=== PATIENT | male | born 1980 | race African-American/Black ===

== ENCOUNTER 2016-05-11 01:57 | Emergency (ER) | payer OTHER ==
[2016-05-11 04:29] LABS: BASO % 0.5 % (0.0-1.0); EOS # 0.2 K/mm3 (0.0-0.50); EOS % 2.7 % (0.0-3.0); LARGE UNSTAINED CELL # 0.2 K/mm3 (0.0-0.4); LARGE UNSTAINED CELL % 2.7 % (0.0-4.0); LYMPH # 1.9 K/mm3 (1.5-4.5); LYMPH % 26.5 % (24.0-44.0); MEAN CORPUSCULAR HEMOGLOBIN 28.6 pg (27.0-33.0); MEAN CORPUSCULAR HGB CONC 35.7 g/dl (32.0-36.5); MEAN CORPUSCULAR VOLUME 80.3 fl (80.0-96.0); MONO # 0.4 K/mm3 (0.0-0.8); MONO % 5.3 % (0.0-5.0); NEUTROPHILS # 4.1 K/mm3 (1.8-7.7); NEUTROPHILS % 62.3 % (36.0-66.0); PLATELET COUNT, AUTOMATED 215 k/mm3 (150-450); RED CELL DISTRIBUTION WIDTH 13.2 % (11.5-14.5); WHITE BLOOD COUNT 6.5 K/mm3 (4.0-10.0)
[2016-05-11 04:55] LABS: ALBUMIN 3.9 GM/DL (3.2-5.2); ALBUMIN/GLOBULIN RATIO 1.15 (1.00-1.93); ALKALINE PHOSPHATASE 72 U/L (45-117); ALT/SGPT 37 U/L (12-78); AMYLASE 58 U/L (25-115); ANION GAP 10 MEQ/L (8-16); AST/SGOT 19 U/L (15-37); BILIRUBIN,TOTAL 1.2 MG/DL (0.2-1.0); BLOOD UREA NITROGEN 13 MG/DL (7-18); CALCIUM LEVEL 8.9 MG/DL (8.5-10.1); CARBON DIOXIDE LEVEL 28 MEQ/L (21-32); CHLORIDE LEVEL 103 MEQ/L (98-107); CREATININE FOR GFR 1.36 MG/DL (0.70-1.30); GLOMERULAR FILTRATION RATE > 60.0 (>60); GLUCOSE, FASTING 112 MG/DL (70-105); POTASSIUM SERUM 3.6 MEQ/L (3.5-5.1); SODIUM LEVEL 141 MEQ/L (136-145); TOTAL PROTEIN 7.3 GM/DL (6.4-8.2)
[2016-05-11] MEDS ORDERED: MORPHINE 2 MG/ML 1ML SYRINGE As Ordered ONE (05:12)
--- NOTE | 2016-05-11 05:20 | REPUSA ---
CLINICAL HISTORY: RUQ pain. TECHNIQUE: Realtime sonographic images were obtained in multiple projections. COMMENTS: The visualized liver is of uniform echo texture without evidence of mass or defect. There is no intra or extrahepatic biliary ductal dilatation. The common bile duct measures 4.2 mm. The gallbladder co ntains a sludge. Normal gallbladder with thickness measuring 2.6 mm. The gallbladder wall is not thic kened and there is no pericholecystic fluid. The visualized portions of the pancreas are unremarkable. Right kidney measures 10.9x5.9x4.2 cm. IMPRESSION: Gallbladder sludge. Thank you for your kind referral of this patient.
[2016-05-11] MEDS ORDERED: ISOVUE-370 76% 100ML VIAL (Q9967) As Ordered ONE (05:36)
--- NOTE | 2016-05-11 06:00 | REPUSA ---
CLINICAL HISTORY: Abdominal pain. TECHNIQUE: Multiple axial, sagittal and coronal CT images were obtained through the abdomen and pelvi s after administration of intravenous contrast material. COMMENTS: The liver is of uniform attenuation without mass or defect. There is no intra or extrahepatic biliary ductal dilatation. The spleen is normal. The gallbladder is within normal limits. The pancreas is of normal contour and attenuation characteristics. There is no evidence of adrenal mass. Both kidneys demonstrate prompt and equal nephrograms. The kidneys are normal in size, shape and conf iguration. There is no evidence of renal or ureteral mass. No renal or ureteral calculi are identifie d. There is no hydroureter or hydronephrosis. Mild thickening and abnormal enhancement of the appendix. Mild periappendiceal fat stranding. Fluid-filled bowels. No evidence for small or large bowel obstruction. There is no evidence of abdomi nal ascites or lymphadenopathy. There is no evidence of intrinsic or extrinsic bladder mass. There is no pelvic ascites or lymphadeno carmen. Diverticulosis. Mild thickening of the distal sigmoid colon. Images of the lung bases show no evidence of pleural or parenchymal mass. There are no pleural effusi ons. The bony structures are free of lytic or blastic lesions. IMPRESSION: Suspected mild changes of developing acute appendicitis. This needs a surgical consultation. Ileus/enteritis. Mildly thickened distal sigmoid just above the rectosigmoid junction. Under distention versus mild co litis. No perforation or abscess formation. Thank you for your kind referral of this patient.
--- NOTE | 2016-05-11 06:57 | EDDOCDS ---
Physician Documentation [facility] Name: Benja Mariscal Age: 35 yrs Sex: Male : 1980 Arrival Date: 05/11/2016 Time: 01:57 Bed 8 Private MD: Disposition: 05/11 06:41 I have independently interviewed and examined the patient, and I agree with the mm11 investigation, diagnosis and treatment plan as documented by the Resident. Disposition: 05/11/16 06:38 Discharged to Home/Self Care. Impression: Generalized abdominal pain - Possible Early Appendicitis. - Condition is Stable. - Discharge Instructions: Abdominal Pain, Adult, Colic, Abdominal Pain, Adult, [id number], Colic, [id number]-hg-[id number]. - Prescriptions for Zofran 4 mg Oral Tablet - take 1 tablet by ORAL route 4 times per day As needed; 10 tablet. - Medication Reconciliation, Local Pharmacy Hours form. - Follow up: MARGUERITE Thayer; When: 2 - 3 days; Reason: Recheck today's complaints, Continuance of care. - Problem is new. - Symptoms have improved. - Notes: Clinically we do not believe you have appendicitis. Please watch for fevers, chills, worsening abdominal pain, loss of appetite, nausea, vomiting, and worsening of symptoms. Please return to the ED if this occurs. Historical: - Allergies: no known allergies; - Home Meds: 1. none - PMHx: none; - PSHx: none; - Social history: Smoking status: Patient states was never smoker of tobacco. No barriers to communication noted, The patient speaks fluent Faroese, Speaks appropriately for age. - Family history: Not pertinent. - : The pt / caregiver states he / she is not on anticoagulants. Home medication list is obtained from the patient. - Exposure Risk Screening:: None identified. Vital Signs: 02:15 BP 139 / 78; Pulse 99; Resp 18; Temp 99(TE); Pulse Ox 96% on R/A; Weight 95.25 kg / sls1 209.99 lbs (R); Height 5 ft. 6 in. (167.64 cm); Pain 3/10; 05:19 BP 128 / 72; Pulse 82; Resp 18; Temp 99.1; Pulse Ox 97% ; Pain 5/10; ko2 06:43 BP 119 / 71; Pulse 88; Resp 16; Temp 98.7(O); Pulse Ox 99% ; mv5 02:15 Body Mass Index 33.89 (95.25 kg, 167.64 cm) sls1 MDM: 04:04 IV Saline Lock ordered. gk1 04:04 NS 0.9% 1000 ml IV at bolus once ordered. gk1 04:05 CBC with Diff Ordered. EDMS 04:05 Complete Comphrensive Metabolic Ordered. EDMS 04:05 Amylase Ordered. EDMS 04:05 Lipase Ordered. EDMS 04:05 Gallbladder US Ordered. EDMS 04:49 [facility] Payment Agreement was scanned into [employer] and attached to record. gjb 04:49 Financial registration complete. gjb 05:08 morphine 2 mg IVP once ordered. gk1 05:21 CBC with Diff Reviewed. mm11 05:21 Complete Comphrensive Metabolic Reviewed. mm11 05:21 Amylase Reviewed. mm11 05:21 Lipase Reviewed. mm11 05:24 CT ABD & PELVIS: IV Contrast Only Ordered. EDMS 05:42 Gallbladder US Reviewed. gk1 06:09 NOTHING BY MOUTH+DIET ordered. EDMS Administered Medications: 04:24 Drug: NS 0.9% 1000 ml [sodium chloride 0.9 % intravenous solution] Route: IV; Rate: ko2 bolus; Site: left antecubital; 06:52 Follow up: IV Status: Completed infusion mv5 05:17 Drug: morphine 2 mg [morphine 2 mg/mL intravenous cartridge (1 mL)] Route: IVP; Site: ko2 left antecubital; 06:52 Follow up: Response: No Adverse Reaction mv5 Signatures: Dispatcher [employer] EDMS Elroy Alonso DO DO mm11 Jo Ruiz RN RN sls1 Fatou Blanco RN RN ko2 Candy Lucasb Venkatesh Guardado DO DO gk1 Renetta Alford RN mv5 The chart was reviewed and I authenticate all verbal orders and agree with the evaluation and treatment provided.Attachments: 04:49 [facility] Payment Agreement gj MTDD
--- NOTE | 2016-05-11 06:57 | EDDOCDS ---
Nurse's Notes [facility] Name: Benja Mariscal Age: 35 yrs Sex: Male : 1980 Arrival Date: 05/11/2016 Time: 01:57 Bed 8 Private MD: Diagnosis: Generalized abdominal pain-Possible Early Appendicitis Presentation: 05/11 02:13 Presenting complaint: Patient states: vomiting yesterday all day, reports had a bowel sls1 movement with dark blood in stool, also reports abdominal pain, denies fever, reports chills. Adult Sepsis Screening: The patient does not have new or worsening altered mentation. Patient's respiratory rate is less than 22. Systolic blood pressure is greater than 100. Patient has a qSOFA score of 0- Negative Sepsis Screen. Suicide/Homicide risk assessment- the patient denies having any suicidal and/or homicidal ideations and does not present with any other emotional, behavioral or mental health complaints. 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 Transition of care: patient was not received from another setting of care. 02:13 Acuity: BENNY Level 3 sls1 02:13 Method Of Arrival: Walkin/Carried/Asstd sls1 Triage Assessment: 02:15 General: Appears in no apparent distress, Behavior is appropriate for age, cooperative. sls1 Pain: Location: abdomen Pain currently is 3 out of 10 on a pain scale. Pt Declines HIV testing. Neurological: No deficits noted. Respiratory: No deficits noted. GI: Reports bloody stools cramping, nausea. Historical: - Allergies: no known allergies; - Home Meds: 1. none - PMHx: none; - PSHx: none; - Social history: Smoking status: Patient states was never smoker of tobacco. No barriers to communication noted, The patient speaks fluent [place] Citizen, Speaks appropriately for age. - Family history: Not pertinent. - : The pt / caregiver states he / she is not on anticoagulants. Home medication list is obtained from the patient. - Exposure Risk Screening:: None identified. Screenin:24 Screening information is obtained from the patient. Fall risk: No risks identified. ko2 Assistance ADL's: requires no assistance with activities of daily living. Abuse/DV Screen: The patient / caregiver reports he/she is: not in a situation that causes fear, pain or injury. Nutritional screening: No deficits noted. Advance Directives: Currently, there is no health care proxy. There is no active DNR order. There is no living will. There is no Power of Peripheral Equipment Operator. home support is adequate. Assessment: 02:59 General: Appears in no apparent distress, comfortable, Behavior is appropriate for age, ko2 cooperative. Pain: Location: abdomen. Neurological: Level of Consciousness is awake, alert. Respiratory: Airway is patent Respiratory effort is even, unlabored. Derm: Skin is normal. 04:00 General: Appears in no apparent distress, comfortable, Behavior is appropriate for age, ko2 cooperative. Pain: Location: abdomen Pain currently is 4 out of 10 on a pain scale. Neurological: Level of Consciousness is awake, alert. Respiratory: Airway is patent Respiratory effort is even, unlabored. Derm: Skin is normal. 05:18 General: Appears in no apparent distress, comfortable, pt was sleeping on stretcher and ko2 was woken up for medication. Pain: Location: abdomen Pain currently is 5 out of 10 on a pain scale. Neurological: Level of Consciousness is awake, alert. Respiratory: Airway is patent Respiratory effort is even, unlabored. Derm: Skin is normal. 06:14 General: Appears in no apparent distress, comfortable, Behavior is appropriate for age, ko2 cooperative. Pain: Location: abdomen Pain currently is 1 out of 10 on a pain scale. Neurological: Level of Consciousness is awake, alert. Respiratory: Airway is patent Respiratory effort is even, unlabored. Derm: Skin is normal. 06:53 General: Appears in no apparent distress, comfortable, Behavior is appropriate for age, ko2 cooperative. Neurological: Level of Consciousness is awake, alert. Respiratory: Airway is patent Respiratory effort is even, unlabored. Derm: Skin is normal. Vital Signs: 02:15 BP 139 / 78; Pulse 99; Resp 18; Temp 99(TE); Pulse Ox 96% on R/A; Weight 95.25 kg (R); sls1 Height 5 ft. 6 in. (167.64 cm); Pain 3/10; 05:19 BP 128 / 72; Pulse 82; Resp 18; Temp 99.1; Pulse Ox 97% ; Pain 5/10; ko2 06:43 BP 119 / 71; Pulse 88; Resp 16; Temp 98.7(O); Pulse Ox 99% ; mv5 02:15 Body Mass Index 33.89 (95.25 kg, 167.64 cm) [facility] Vitals: 02:15 Log In Time: May 11, 2016 at 02:00. [facility] ED Course: 01:59 Patient visited by Bigg Roberto. jp5 01:59 Patient moved to Waiting jp5 02:14 Triage Initiated sls1 02:55 Fatou Blanco RN is Primary Nurse. mar 02:55 Patient moved to 8 mar 02:59 Patient visited by Fatou Blanco RN. ko2 03:00 Patient visited by Fatou Blanco RN. ko2 03:31 Venkatesh Guardado DO is PHCP. gk1 03:31 Elroy Alonso DO is Attending Physician. gk1 03:59 Patient visited by Fatou Balnco RN. ko2 04:24 Lipase Sent. ko2 04:24 Amylase Sent. ko2 04:24 Complete Comphrensive Metabolic Sent. ko2 04:25 The patient / caregiver is instructed regarding the plan of care and ED course. ko2 04:25 Inserted saline lock: 20 gauge in left antecubital area and blood collected. ko2 04:35 Patient visited by Elroy Alonso DO. mm11 04:49 [facility] Payment Agreement was scanned into [employer] and attached to record. gjb 05:10 Patient visited by Venkatesh Guardado DO. gk1 05:30 Gallbladder US Returned. EDMS 06:01 CT ABD & PELVIS: IV Contrast Only Returned. EDMS 06:09 Patient visited by Fatou Blanco RN. ko2 06:37 Flaca [facility] is Referral Physician. gk1 06:51 Discontinued intact, bleeding controlled, pressure dressing applied, No mv5 redness/swelling at site. 06:54 No procedures done that require assistance. ko2 Administered Medications: 04:24 Drug: NS 0.9% 1000 ml [sodium chloride 0.9 % intravenous solution] Route: IV; Rate: ko2 bolus; Site: left antecubital; 06:52 Follow up: IV Status: Completed infusion mv5 05:17 Drug: morphine 2 mg [morphine 2 mg/mL intravenous cartridge (1 mL)] Route: IVP; Site: ko2 left antecubital; 06:52 Follow up: Response: No Adverse Reaction mv5 Order Results: Lab Order: CBC with Diff; SPEC'M 05/11/16 04:18 Test: WHITE BLOOD COUNT; Value: 6.5; Range: 4.0-10.0; Units: K/mm3; Status: F Test: RED BLOOD COUNT; Value: 5.37; Range: 4.30-6.10; Units: M/mm3; Status: F Test: HEMOGLOBIN; Value: 15.4; Range: 14.0-18.0; Units: g/dl; Status: F Test: HEMATOCRIT; Value: 43.1; Range: 42.0-52.0; Units: %; Status: F Test: MEAN CORPUSCULAR VOLUME; Value: 80.3; Range: 80.0-96.0; Units: fl; Status: F Test: MEAN CORPUSCULAR HEMOGLOBIN; Value: 28.6; Range: 27.0-33.0; Units: pg; Status: F Test: MEAN CORPUSCULAR HGB CONC; Value: 35.7; Range: 32.0-36.5; Units: g/dl; Status: F Test: RED CELL DISTRIBUTION WIDTH; Value: 13.2; Range: 11.5-14.5; Units: %; Status: F Test: PLATELET COUNT, AUTOMATED; Value: 215; Range: 150-450; Units: k/mm3; Status: F Test: NEUTROPHILS %; Value: 62.3; Range: 36.0-66.0; Units: %; Status: F Test: LYMPH %; Value: 26.5; Range: 24.0-44.0; Units: %; Status: F Test: MONO %; Value: 5.3; Range: 0.0-5.0; Abnormal: Above high normal; Units: %; Status: F Test: EOS %; Value: 2.7; Range: 0.0-3.0; Units: %; Status: F Test: BASO %; Value: 0.5; Range: 0.0-1.0; Units: %; Status: F Test: LARGE UNSTAINED CELL %; Value: 2.7; Range: 0.0-4.0; Units: %; Status: F Test: NEUTROPHILS #; Value: 4.1; Range: 1.8-7.7; Units: K/mm3; Status: F Test: LYMPH #; Value: 1.9; Range: 1.5-4.5; Units: K/mm3; Status: F Test: MONO #; Value: 0.4; Range: 0.0-0.8; Units: K/mm3; Status: F Test: EOS #; Value: 0.2; Range: 0.0-0.50; Units: K/mm3; Status: F Test: BASO #; Value: 0.0; Range: 0.0-0.2; Units: K/mm3; Status: F Test: LARGE UNSTAINED CELL #; Value: 0.2; Range: 0.0-0.4; Units: K/mm3; Status: F Lab Order: Complete Comphrensive Metabolic; SPECM 05/11/16 04:18 Test: GLUCOSE, FASTING; Value: 112; Range: 70-105; Abnormal: Above high normal; Units: MG/DL; Status: F Test: BLOOD UREA NITROGEN; Value: 13; Range: 7-18; Units: MG/DL; Status: F Test: CREATININE FOR GFR; Value: 1.36; Range: 0.70-1.30; Abnormal: Above high normal; Units: MG/DL; Status: F Test: GLOMERULAR FILTRATION RATE; Value: > 60.0; Range: >60; Status: F Test: SODIUM LEVEL; Value: 141; Range: 136-145; Units: MEQ/L; Status: F Test: POTASSIUM SERUM; Value: 3.6; Range: 3.5-5.1; Units: MEQ/L; Status: F Test: CHLORIDE LEVEL; Value: 103; Range: 98-107; Units: MEQ/L; Status: F Test: CARBON DIOXIDE LEVEL; Value: 28; Range: 21-32; Units: MEQ/L; Status: F Test: ANION GAP; Value: 10; Range: 8-16; Units: MEQ/L; Status: F Test: CALCIUM LEVEL; Value: 8.9; Range: 8.5-10.1; Units: MG/DL; Status: F Test: AST/SGOT; Value: 19; Range: 15-37; Units: U/L; Status: F Test: ALT/SGPT; Value: 37; Range: 12-78; Units: U/L; Status: F Test: ALKALINE PHOSPHATASE; Value: 72; Range: 45-117; Units: U/L; Status: F Test: BILIRUBIN,TOTAL; Value: 1.2; Range: 0.2-1.0; Abnormal: Above high normal; Units: MG/DL; Status: F Test: TOTAL PROTEIN; Value: 7.3; Range: 6.4-8.2; Units: GM/DL; Status: F Test: ALBUMIN; Value: 3.9; Range: 3.2-5.2; Units: GM/DL; Status: F Test: ALBUMIN/GLOBULIN RATIO; Value: 1.15; Range: 1.00-1.93; Status: F Test Note: ; Units are mL/min/1.73 m2 Chronic Kidney Disease Staging per NKF: Stage I & II GFR >=60 Normal to Mildly Decreased Stage III GFR 30-59 Moderately Decreased Stage IV GFR 15-29 Severely Decreased Stage V GFR <15 Very Little GFR Left ESRD GFR <15 on ASSURANCE SENIOR Lab Order: Amylase; SPEC'M 05/11/16 04:18 Test: AMYLASE; Value: 58; Range: 25-115; Units: U/L; Status: F Lab Order: Lipase; SPEC'M 05/11/16 04:18 Test: LIPASE; Value: 137; Range: 73-393; Units: U/L; Status: F Radiology Order: Gallbladder US Test: Gallbladder US REASON FOR EXAMINATION: Biliary Colic; ; CLINICAL HISTORY: RUQ pain.; TECHNIQUE: Realtime sonographic images were obtained in multiple projections.; COMMENTS:; The visualized liver is of uniform echo texture without evidence of mass or defect. There is no intra; or extrahepatic biliary ductal dilatation. The common bile duct measures 4.2 mm. The gallbladder co; ntains a sludge. Normal gallbladder with thickness measuring 2.6 mm. The gallbladder wall is not thic; kened and there is no pericholecystic fluid.; The visualized portions of the pancreas are unremarkable.; Right kidney measures 10.9x5.9x4.2 cm.; IMPRESSION:; Gallbladder sludge.; Thank you for your kind referral of this patient.; ; Radiology Order: CT ABD & PELVIS: IV Contrast Only Test: CT ABD & PELVIS: IV Contrast Only REASON FOR EXAMINATION: Diverticulitis; ; CLINICAL HISTORY: Abdominal pain.; TECHNIQUE: Multiple axial, sagittal and coronal CT images were obtained through the abdomen and pelvi; s after administration of intravenous contrast material.; COMMENTS:; The liver is of uniform attenuation without mass or defect. There is no intra or extrahepatic biliary; ductal dilatation. The spleen is normal. The gallbladder is within normal limits. The pancreas is of; normal contour and attenuation characteristics. There is no evidence of adrenal mass.; Both kidneys demonstrate prompt and equal nephrograms. The kidneys are normal in size, shape and conf; iguration. There is no evidence of renal or ureteral mass. No renal or ureteral calculi are identifie; d. There is no hydroureter or hydronephrosis.; Mild thickening and abnormal enhancement of the appendix. Mild periappendiceal fat stranding.; Fluid-filled bowels. No evidence for small or large bowel obstruction. There is no evidence of abdomi; nal ascites or lymphadenopathy.; There is no evidence of intrinsic or extrinsic bladder mass. There is no pelvic ascites or lymphadeno; carmen. Diverticulosis. Mild thickening of the distal sigmoid colon.; Images of the lung bases show no evidence of pleural or parenchymal mass. There are no pleural effusi; ons.; The bony structures are free of lytic or blastic lesions.; IMPRESSION:; Suspected mild changes of developing acute appendicitis. This needs a surgical consultation.; Ileus/enteritis.; Mildly thickened distal sigmoid just above the rectosigmoid junction. Under distention versus mild co; litis.; No perforation or abscess formation.; Thank you for your kind referral of this patient.; ; Outcome: 06:38 Discharge ordered by Provider. gk1 06:54 Discharge Assessment: Patient awake, alert and oriented x 3. No cognitive and/or ko2 functional deficits noted. Patient verbalized understanding of disposition instructions. patient administered narcotics - no. The following High Risk Discharge criteria are identified: None. Discharged to home ambulatory. Condition: stable. Discharge instructions given to patient, Instructed on discharge instructions, follow up and referral plans. medication usage, Demonstrated understanding of instructions, medications, Pt was receptive of discharge instructions/ teaching. CT Study completed. Property sent home with patient. 06:55 Patient left the ED. ko2 Signatures: Dispatcher [employer] Cara Lagos, RN RN Elroy Ken, DO DO mm11 Jo Ruiz, RN RN sls1 Fatou BlancoRN RN blanca2 Bigg Roberto jp5 Candy Lucas Gurpreet, DO DO gk1 Renetta Alford,RN RN mv5 MTDD
--- NOTE | 2016-05-13 07:55 | EDDOCDS ---
Physician Documentation [facility] Name: Benja Mariscal Age: 35 yrs Sex: Male : 1980 Arrival Date: 05/11/2016 Time: 01:57 Bed 8 Private MD: Disposition: 05/11 06:41 I have independently interviewed and examined the patient, and I agree with the mm11 investigation, diagnosis and treatment plan as documented by the Resident. Disposition: 05/11/16 06:38 Discharged to Home/Self Care. Impression: Generalized abdominal pain - Possible Early Appendicitis. - Condition is Stable. - Discharge Instructions: Abdominal Pain, Adult, Colic, Abdominal Pain, Adult, Jysu-[id number], Colic, [id number]. - Prescriptions for Zofran 4 mg Oral Tablet - take 1 tablet by ORAL route 4 times per day As needed; 10 tablet. - Medication Reconciliation, Local Pharmacy Hours form. - Follow up: MARGUERITE Thayer; When: 2 - 3 days; Reason: Recheck today's complaints, Continuance of care. - Problem is new. - Symptoms have improved. - Notes: Clinically we do not believe you have appendicitis. Please watch for fevers, chills, worsening abdominal pain, loss of appetite, nausea, vomiting, and worsening of symptoms. Please return to the ED if this occurs. Historical: - Allergies: no known allergies; - Home Meds: 1. none - PMHx: none; - PSHx: none; - Social history: Smoking status: Patient states was never smoker of tobacco. No barriers to communication noted, The patient speaks fluent [place]odian, Speaks appropriately for age. - Family history: Not pertinent. - : The pt / caregiver states he / she is not on anticoagulants. Home medication list is obtained from the patient. - Exposure Risk Screening:: None identified. Vital Signs: 02:15 BP 139 / 78; Pulse 99; Resp 18; Temp 99(TE); Pulse Ox 96% on R/A; Weight 95.25 kg / sls1 209.99 lbs (R); Height 5 ft. 6 in. (167.64 cm); Pain 3/10; 05:19 BP 128 / 72; Pulse 82; Resp 18; Temp 99.1; Pulse Ox 97% ; Pain 5/10; ko2 06:43 BP 119 / 71; Pulse 88; Resp 16; Temp 98.7(O); Pulse Ox 99% ; mv5 02:15 Body Mass Index 33.89 (95.25 kg, 167.64 cm) sls1 MDM: 04:04 IV Saline Lock ordered. gk1 04:04 NS 0.9% 1000 ml IV at bolus once ordered. gk1 04:05 CBC with Diff Ordered. EDMS 04:05 Complete Comphrensive Metabolic Ordered. EDMS 04:05 Amylase Ordered. EDMS 04:05 Lipase Ordered. EDMS 04:05 Gallbladder US Ordered. EDMS 04:49 [facility] Payment Agreement was scanned into [employer] and attached to record. gjb 04:49 Financial registration complete. gjb 05:08 morphine 2 mg IVP once ordered. gk1 05:21 CBC with Diff Reviewed. mm11 05:21 Complete Comphrensive Metabolic Reviewed. mm11 05:21 Amylase Reviewed. mm11 05:21 Lipase Reviewed. mm11 05:24 CT ABD & PELVIS: IV Contrast Only Ordered. EDMS 05:42 Gallbladder US Reviewed. gk1 06:09 NOTHING BY MOUTH+DIET ordered. EDMS 11:33 Radiology Report was scanned into [employer] and attached to record. gb 15:33 T-Sheet-- Draft Copy was scanned into [employer] and attached to record. gb Administered Medications: 04:24 Drug: NS 0.9% 1000 ml [sodium chloride 0.9 % intravenous solution] Route: IV; Rate: ko2 bolus; Site: left antecubital; 06:52 Follow up: IV Status: Completed infusion mv5 05:17 Drug: morphine 2 mg [morphine 2 mg/mL intravenous cartridge (1 mL)] Route: IVP; Site: ko2 left antecubital; 06:52 Follow up: Response: No Adverse Reaction mv5 Signatures: Dispatcher [employer] EDMS Herminia Moy, Reg Reg gb Elroy Alonso, DO mm11 Jo Ruiz RN RN sls1 Fatou Blanco RN RN ko2 Candy Luacs gjb Venkatesh Guardado, DO DO gk1 Renetta Alford RN mv5 The chart was reviewed and I authenticate all verbal orders and agree with the evaluation and treatment provided.Attachments: 04:49 [facility] Payment Agreement b 15:33 T-Sheet-- Draft Copy gb Chart Complete MTDD
--- NOTE | 2016-05-13 07:55 | EDDOCDS ---
Physician Documentation [facility] Name: Benja Mariscal Age: 35 yrs Sex: Male : 1980 Arrival Date: 05/11/2016 Time: 01:57 Bed 8 Private MD: Disposition: 05/11 06:41 I have independently interviewed and examined the patient, and I agree with the mm11 investigation, diagnosis and treatment plan as documented by the Resident. Disposition: 05/11/16 06:38 Discharged to Home/Self Care. Impression: Generalized abdominal pain - Possible Early Appendicitis. - Condition is Stable. - Discharge Instructions: Abdominal Pain, Adult, Colic, Abdominal Pain, Adult, [id number], Colic, [id number]. - Prescriptions for Zofran 4 mg Oral Tablet - take 1 tablet by ORAL route 4 times per day As needed; 10 tablet. - Medication Reconciliation, Local Pharmacy Hours form. - Follow up: MARGUERITE Thayer; When: 2 - 3 days; Reason: Recheck today's complaints, Continuance of care. - Problem is new. - Symptoms have improved. - Notes: Clinically we do not believe you have appendicitis. Please watch for fevers, chills, worsening abdominal pain, loss of appetite, nausea, vomiting, and worsening of symptoms. Please return to the ED if this occurs. Historical: - Allergies: no known allergies; - Home Meds: 1. none - PMHx: none; - PSHx: none; - Social history: Smoking status: Patient states was never smoker of tobacco. No barriers to communication noted, The patient speaks fluent [place], Speaks appropriately for age. - Family history: Not pertinent. - : The pt / caregiver states he / she is not on anticoagulants. Home medication list is obtained from the patient. - Exposure Risk Screening:: None identified. Vital Signs: 02:15 BP 139 / 78; Pulse 99; Resp 18; Temp 99(TE); Pulse Ox 96% on R/A; Weight 95.25 kg / sls1 209.99 lbs (R); Height 5 ft. 6 in. (167.64 cm); Pain 3/10; 05:19 BP 128 / 72; Pulse 82; Resp 18; Temp 99.1; Pulse Ox 97% ; Pain 5/10; ko2 06:43 BP 119 / 71; Pulse 88; Resp 16; Temp 98.7(O); Pulse Ox 99% ; mv5 02:15 Body Mass Index 33.89 (95.25 kg, 167.64 cm) sls1 MDM: 04:04 IV Saline Lock ordered. gk1 04:04 NS 0.9% 1000 ml IV at bolus once ordered. gk1 04:05 CBC with Diff Ordered. EDMS 04:05 Complete Comphrensive Metabolic Ordered. EDMS 04:05 Amylase Ordered. EDMS 04:05 Lipase Ordered. EDMS 04:05 Gallbladder US Ordered. EDMS 04:49 [facility] [place] Agreement was scanned into [employer] and attached to record. gjb 04:49 Financial registration complete. gjb 05:08 morphine 2 mg IVP once ordered. gk1 05:21 CBC with Diff Reviewed. mm11 05:21 Complete Comphrensive Metabolic Reviewed. mm11 05:21 Amylase Reviewed. mm11 05:21 Lipase Reviewed. mm11 05:24 CT ABD & PELVIS: IV Contrast Only Ordered. EDMS 05:42 Gallbladder US Reviewed. gk1 06:09 NOTHING BY MOUTH+DIET ordered. EDMS 11:33 Radiology Report was scanned into [employer] and attached to record. gb 15:33 T-Sheet-- Draft Copy was scanned into [employer] and attached to record. gb Administered Medications: 04:24 Drug: NS 0.9% 1000 ml [sodium chloride 0.9 % intravenous solution] Route: IV; Rate: ko2 bolus; Site: left antecubital; 06:52 Follow up: IV Status: Completed infusion mv5 05:17 Drug: morphine 2 mg [morphine 2 mg/mL intravenous cartridge (1 mL)] Route: IVP; Site: ko2 left antecubital; 06:52 Follow up: Response: No Adverse Reaction mv5 Signatures: Dispatcher [employer] EDMS Herminia Moy, Reg Reg gb Elroy Alonso, DO mm11 Jo Ruiz RN RN sls1 Fatou Blanco RN RN ko2 Candy Lucas gjb Venkatesh Guardado, DO DO gk1 Renetta Alford RN mv5 The chart was reviewed and I authenticate all verbal orders and agree with the evaluation and treatment provided.Attachments: 04:49 [facility] Payment Agreement b 15:33 T-Sheet-- Draft Copy gb Chart Complete MTDD
--- NOTE | 2016-05-13 07:56 | EDDOCDS ---
Nurse's Notes [facility] Name: Benja Mariscal Age: 35 yrs Sex: Male : 1980 Arrival Date: 05/11/2016 Time: 01:57 Bed 8 Private MD: Diagnosis: Generalized abdominal pain-Possible Early Appendicitis Presentation: 05/11 02:13 Presenting complaint: Patient states: vomiting yesterday all day, reports had a bowel sls1 movement with dark blood in stool, also reports abdominal pain, denies fever, reports chills. Adult Sepsis Screening: The patient does not have new or worsening altered mentation. Patient's respiratory rate is less than 22. Systolic blood pressure is greater than 100. Patient has a qSOFA score of 0- Negative Sepsis Screen. Suicide/Homicide risk assessment- the patient denies having any suicidal and/or homicidal ideations and does not present with any other emotional, behavioral or mental health complaints. 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 Transition of care: patient was not received from another setting of care. 02:13 Acuity: BENNY Level 3 sls1 02:13 Method Of Arrival: Walkin/Carried/Asstd sls1 Triage Assessment: 02:15 General: Appears in no apparent distress, Behavior is appropriate for age, cooperative. sls1 Pain: Location: abdomen Pain currently is 3 out of 10 on a pain scale. Pt Declines HIV testing. Neurological: No deficits noted. Respiratory: No deficits noted. GI: Reports bloody stools cramping, nausea. Historical: - Allergies: no known allergies; - Home Meds: 1. none - PMHx: none; - PSHx: none; - Social history: Smoking status: Patient states was never smoker of tobacco. No barriers to communication noted, The patient speaks fluent Bolivian, Speaks appropriately for age. - Family history: Not pertinent. - : The pt / caregiver states he / she is not on anticoagulants. Home medication list is obtained from the patient. - Exposure Risk Screening:: None identified. Screenin:24 Screening information is obtained from the patient. Fall risk: No risks identified. ko2 Assistance ADL's: requires no assistance with activities of daily living. Abuse/DV Screen: The patient / caregiver reports he/she is: not in a situation that causes fear, pain or injury. Nutritional screening: No deficits noted. Advance Directives: Currently, there is no health care proxy. There is no active DNR order. There is no living will. There is no Power of Director Financial Planning. home support is adequate. Assessment: 02:59 General: Appears in no apparent distress, comfortable, Behavior is appropriate for age, ko2 cooperative. Pain: Location: abdomen. Neurological: Level of Consciousness is awake, alert. Respiratory: Airway is patent Respiratory effort is even, unlabored. Derm: Skin is normal. 04:00 General: Appears in no apparent distress, comfortable, Behavior is appropriate for age, ko2 cooperative. Pain: Location: abdomen Pain currently is 4 out of 10 on a pain scale. Neurological: Level of Consciousness is awake, alert. Respiratory: Airway is patent Respiratory effort is even, unlabored. Derm: Skin is normal. 05:18 General: Appears in no apparent distress, comfortable, pt was sleeping on stretcher and ko2 was woken up for medication. Pain: Location: abdomen Pain currently is 5 out of 10 on a pain scale. Neurological: Level of Consciousness is awake, alert. Respiratory: Airway is patent Respiratory effort is even, unlabored. Derm: Skin is normal. 06:14 General: Appears in no apparent distress, comfortable, Behavior is appropriate for age, ko2 cooperative. Pain: Location: abdomen Pain currently is 1 out of 10 on a pain scale. Neurological: Level of Consciousness is awake, alert. Respiratory: Airway is patent Respiratory effort is even, unlabored. Derm: Skin is normal. 06:53 General: Appears in no apparent distress, comfortable, Behavior is appropriate for age, ko2 cooperative. Neurological: Level of Consciousness is awake, alert. Respiratory: Airway is patent Respiratory effort is even, unlabored. Derm: Skin is normal. Vital Signs: 02:15 BP 139 / 78; Pulse 99; Resp 18; Temp 99(TE); Pulse Ox 96% on R/A; Weight 95.25 kg (R); sls1 Height 5 ft. 6 in. (167.64 cm); Pain 3/10; 05:19 BP 128 / 72; Pulse 82; Resp 18; Temp 99.1; Pulse Ox 97% ; Pain 5/10; ko2 06:43 BP 119 / 71; Pulse 88; Resp 16; Temp 98.7(O); Pulse Ox 99% ; mv5 02:15 Body Mass Index 33.89 (95.25 kg, 167.64 cm) [facility] Vitals: 02:15 Log In Time: May 11, 2016 at 02:00. [email or web address] ED Course: 01:59 Patient visited by Bigg Roberto. jp5 01:59 Patient moved to Waiting jp5 02:14 Triage Initiated sls1 02:55 Fatou Blanco RN is Primary Nurse. mar 02:55 Patient moved to 8 mar 02:59 Patient visited by Fatou Blanco RN. ko2 03:00 Patient visited by Fatou Blanco RN. ko2 03:31 Venkatesh Guardado DO is PHCP. gk1 03:31 Elroy Alonso DO is Attending Physician. gk1 03:59 Patient visited by Fatou Blanco RN. ko2 04:24 Lipase Sent. ko2 04:24 Amylase Sent. ko2 04:24 Complete Comphrensive Metabolic Sent. ko2 04:25 The patient / caregiver is instructed regarding the plan of care and ED course. ko2 04:25 Inserted saline lock: 20 gauge in left antecubital area and blood collected. ko2 04:35 Patient visited by Elroy Alonso DO. mm11 04:49 [facility] Payment Agreement was scanned into [employer] and attached to record. gjb 05:10 Patient visited by Venkatesh Guardado DO. gk1 05:30 Gallbladder US Returned. EDMS 06:01 CT ABD & PELVIS: IV Contrast Only Returned. EDMS 06:09 Patient visited by Fatou Blanco RN. ko2 06:37 [facility] [place]erral Physician. gk1 06:51 Discontinued intact, bleeding controlled, pressure dressing applied, No mv5 redness/swelling at site. 06:54 No procedures done that require assistance. ko2 11:33 Radiology Report was scanned into [employer] and attached to record. gb 15:33 T-Sheet-- Draft Copy was scanned into [employer] and attached to record. gb Administered Medications: 04:24 Drug: NS 0.9% 1000 ml [sodium chloride 0.9 % intravenous solution] Route: IV; Rate: ko2 bolus; Site: left antecubital; 06:52 Follow up: IV Status: Completed infusion mv5 05:17 Drug: morphine 2 mg [morphine 2 mg/mL intravenous cartridge (1 mL)] Route: IVP; Site: ko2 left antecubital; 06:52 Follow up: Response: No Adverse Reaction mv5 Order Results: Lab Order: CBC with Diff; SPEC'M 05/11/16 04:18 Test: WHITE BLOOD COUNT; Value: 6.5; Range: 4.0-10.0; Units: K/mm3; Status: F Test: RED BLOOD COUNT; Value: 5.37; Range: 4.30-6.10; Units: M/mm3; Status: F Test: HEMOGLOBIN; Value: 15.4; Range: 14.0-18.0; Units: g/dl; Status: F Test: HEMATOCRIT; Value: 43.1; Range: 42.0-52.0; Units: %; Status: F Test: MEAN CORPUSCULAR VOLUME; Value: 80.3; Range: 80.0-96.0; Units: fl; Status: F Test: MEAN CORPUSCULAR HEMOGLOBIN; Value: 28.6; Range: 27.0-33.0; Units: pg; Status: F Test: MEAN CORPUSCULAR HGB CONC; Value: 35.7; Range: 32.0-36.5; Units: g/dl; Status: F Test: RED CELL DISTRIBUTION WIDTH; Value: 13.2; Range: 11.5-14.5; Units: %; Status: F Test: PLATELET COUNT, AUTOMATED; Value: 215; Range: 150-450; Units: k/mm3; Status: F Test: NEUTROPHILS %; Value: 62.3; Range: 36.0-66.0; Units: %; Status: F Test: LYMPH %; Value: 26.5; Range: 24.0-44.0; Units: %; Status: F Test: MONO %; Value: 5.3; Range: 0.0-5.0; Abnormal: Above high normal; Units: %; Status: F Test: EOS %; Value: 2.7; Range: 0.0-3.0; Units: %; Status: F Test: BASO %; Value: 0.5; Range: 0.0-1.0; Units: %; Status: F Test: LARGE UNSTAINED CELL %; Value: 2.7; Range: 0.0-4.0; Units: %; Status: F Test: NEUTROPHILS #; Value: 4.1; Range: 1.8-7.7; Units: K/mm3; Status: F Test: LYMPH #; Value: 1.9; Range: 1.5-4.5; Units: K/mm3; Status: F Test: MONO #; Value: 0.4; Range: 0.0-0.8; Units: K/mm3; Status: F Test: EOS #; Value: 0.2; Range: 0.0-0.50; Units: K/mm3; Status: F Test: BASO #; Value: 0.0; Range: 0.0-0.2; Units: K/mm3; Status: F Test: LARGE UNSTAINED CELL #; Value: 0.2; Range: 0.0-0.4; Units: K/mm3; Status: F Lab Order: Complete Comphrensive Metabolic; SPEC'M 05/11/16 04:18 Test: GLUCOSE, FASTING; Value: 112; Range: 70-105; Abnormal: Above high normal; Units: MG/DL; Status: F Test: BLOOD UREA NITROGEN; Value: 13; Range: 7-18; Units: MG/DL; Status: F Test: CREATININE FOR GFR; Value: 1.36; Range: 0.70-1.30; Abnormal: Above high normal; Units: MG/DL; Status: F Test: GLOMERULAR FILTRATION RATE; Value: > 60.0; Range: >60; Status: F Test: SODIUM LEVEL; Value: 141; Range: 136-145; Units: MEQ/L; Status: F Test: POTASSIUM SERUM; Value: 3.6; Range: 3.5-5.1; Units: MEQ/L; Status: F Test: CHLORIDE LEVEL; Value: 103; Range: 98-107; Units: MEQ/L; Status: F Test: CARBON DIOXIDE LEVEL; Value: 28; Range: 21-32; Units: MEQ/L; Status: F Test: ANION GAP; Value: 10; Range: 8-16; Units: MEQ/L; Status: F Test: CALCIUM LEVEL; Value: 8.9; Range: 8.5-10.1; Units: MG/DL; Status: F Test: AST/SGOT; Value: 19; Range: 15-37; Units: U/L; Status: F Test: ALT/SGPT; Value: 37; Range: 12-78; Units: U/L; Status: F Test: ALKALINE PHOSPHATASE; Value: 72; Range: 45-117; Units: U/L; Status: F Test: BILIRUBIN,TOTAL; Value: 1.2; Range: 0.2-1.0; Abnormal: Above high normal; Units: MG/DL; Status: F Test: TOTAL PROTEIN; Value: 7.3; Range: 6.4-8.2; Units: GM/DL; Status: F Test: ALBUMIN; Value: 3.9; Range: 3.2-5.2; Units: GM/DL; Status: F Test: ALBUMIN/GLOBULIN RATIO; Value: 1.15; Range: 1.00-1.93; Status: F Test Note: ; Units are mL/min/1.73 m2 Chronic Kidney Disease Staging per NKF: Stage I & II GFR >=60 Normal to Mildly Decreased Stage III GFR 30-59 Moderately Decreased Stage IV GFR 15-29 Severely Decreased Stage V GFR <15 Very Little GFR Left ESRD GFR <15 on PEDIATRIC PATHOLOGIST Lab Order: Amylase; SPEC'M 05/11/16 04:18 Test: AMYLASE; Value: 58; Range: 25-115; Units: U/L; Status: F Lab Order: Lipase; SPEC'M 05/11/16 04:18 Test: LIPASE; Value: 137; Range: 73-393; Units: U/L; Status: F Radiology Order: Gallbladder US Test: Gallbladder US REASON FOR EXAMINATION: Biliary Colic; ; CLINICAL HISTORY: RUQ pain.; TECHNIQUE: Realtime sonographic images were obtained in multiple projections.; COMMENTS:; The visualized liver is of uniform echo texture without evidence of mass or defect. There is no intra; or extrahepatic biliary ductal dilatation. The common bile duct measures 4.2 mm. The gallbladder co; ntains a sludge. Normal gallbladder with thickness measuring 2.6 mm. The gallbladder wall is not thic; kened and there is no pericholecystic fluid.; The visualized portions of the pancreas are unremarkable.; Right kidney measures 10.9x5.9x4.2 cm.; IMPRESSION:; Gallbladder sludge.; Thank you for your kind referral of this patient.; ; Radiology Order: CT ABD & PELVIS: IV Contrast Only Test: CT ABD & PELVIS: IV Contrast Only REASON FOR EXAMINATION: Diverticulitis; ; CLINICAL HISTORY: Abdominal pain.; TECHNIQUE: Multiple axial, sagittal and coronal CT images were obtained through the abdomen and pelvi; s after administration of intravenous contrast material.; COMMENTS:; The liver is of uniform attenuation without mass or defect. There is no intra or extrahepatic biliary; ductal dilatation. The spleen is normal. The gallbladder is within normal limits. The pancreas is of; normal contour and attenuation characteristics. There is no evidence of adrenal mass.; Both kidneys demonstrate prompt and equal nephrograms. The kidneys are normal in size, shape and conf; iguration. There is no evidence of renal or ureteral mass. No renal or ureteral calculi are identifie; d. There is no hydroureter or hydronephrosis.; Mild thickening and abnormal enhancement of the appendix. Mild periappendiceal fat stranding.; Fluid-filled bowels. No evidence for small or large bowel obstruction. There is no evidence of abdomi; nal ascites or lymphadenopathy.; There is no evidence of intrinsic or extrinsic bladder mass. There is no pelvic ascites or lymphadeno; carmen. Diverticulosis. Mild thickening of the distal sigmoid colon.; Images of the lung bases show no evidence of pleural or parenchymal mass. There are no pleural effusi; ons.; The bony structures are free of lytic or blastic lesions.; IMPRESSION:; Suspected mild changes of developing acute appendicitis. This needs a surgical consultation.; Ileus/enteritis.; Mildly thickened distal sigmoid just above the rectosigmoid junction. Under distention versus mild co; litis.; No perforation or abscess formation.; Thank you for your kind referral of this patient.; ; Outcome: 06:38 Discharge ordered by Provider. gk1 06:54 Discharge Assessment: Patient awake, alert and oriented x 3. No cognitive and/or ko2 functional deficits noted. Patient verbalized understanding of disposition instructions. patient administered narcotics - no. The following High Risk Discharge criteria are identified: None. Discharged to home ambulatory. Condition: stable. Discharge instructions given to patient, Instructed on discharge instructions, follow up and referral plans. medication usage, Demonstrated understanding of instructions, medications, Pt was receptive of discharge instructions/ teaching. CT Study completed. Property sent home with patient. 06:55 Patient left the ED. ko2 Signatures: Dispatcher [employer] EDMS Cara Sampson, RN RN Herminia Coffey, Reg Reg gb Elroy Alonso, DO DO mm11 Jo Ruiz, RN RN sls1 Fatou BlancoRN RN ko2 Bigg Roberto jp5 Candy Lucas Gurpreet, DO DO gk1 Renetta Alford,RN RN mv5 Chart Complete MTDD
== END 2016-05-11 06:55 | disposition home or self-care (01) ==
LOC: M ED 01:57
DX: R10.9 Unspecified abdominal pain (principal)
CPT/HCPCS: 36415; 74177; 76705; 80053; 82150; 83690; 85025; 96361; 96374; 99284; Q9967

== ENCOUNTER 2016-10-30 08:39 | Emergency (ER) | payer OTHER ==
[~2016-10-30] VITALS: Ht 167.6 cm; Wt 94.1 kg
[2016-10-30] MEDS ORDERED: NS 1,000 ML IV ONE (09:30)
--- NOTE | 2016-10-30 09:56 | REP ---
RIGHT KNEE: Six views of the right knee are performed. There is no fracture. There is a high position of the patella. Findings are consistent with patella carmen. The joint spaces appear unremarkable. IMPRESSION: Patella carmen. Signed by Jm Howard MD 10/30/2016 05:06 P
--- NOTE | 2016-10-30 13:58 | REP ---
MRI RIGHT KNEE: TECHNIQUE: Axial proton density fat saturation, sagittal proton density T2 STIR, water excitation, coronal proton density, proton density fat saturation. No definite meniscal tear is seen. The cruciate and collateral ligaments are intact. There is rupture of the patellar tendon at the insertion site onto the inferior aspect of the patella. There is moderate surrounding edema and fluid. T here is resultant displacement of the patella superiorly. There is moderate focal cartilaginous thinning along the lateral femoral condyle with mild subchondral marrow edema. No other marrow signal abnormality is seen. There is no popliteal cyst. IMPRESSION: Rupture of patellar tendon at the insertion onto the inferior pole of the patella. Resultant displacement of patella superiorly. There is moderate adjacent edema and fluid. Focal cartilaginous thinning lateral femoral condyle with mild subchondral marrow edema. Signed by Jm Howard MD 10/30/2016 05:11 P
[2016-10-30] MEDS ORDERED: PERCOCET 5MG/325MG TAB PO ONE (14:00)
[2016-10-30] MEDS ORDERED: NORCOTAB PO (14:10)
[2016-10-30] MEDS ORDERED: IBUP-1022 PO (14:10)
[2016-10-30 14:16] VITALS: BP 147/87
== END 2016-10-30 14:18 | disposition home or self-care (01) ==
LOC: EDBD 08:39 → M ED 08:39
DX: S86.811A Strain of other muscle(s) and tendon(s) at lower leg level, right leg, initial encounter (principal); X50.1XXA Overexertion from prolonged static or awkward postures, initial encounter; Y92.139 Unspecified place military base as the place of occurrence of the external cause; Y93.A9 Activity, other involving cardiorespiratory exercise; Y99.1 Military activity

== ENCOUNTER 2017-06-19 02:13 | Emergency (ER) | payer OTHER | END 2017-06-19 03:02 | disposition home or self-care (01) | LOC: M ED 02:13 | DX: M79.671 Pain in right foot (principal); M79.672 Pain in left foot | CPT/HCPCS: 99282 ==

== ENCOUNTER 2018-03-22 16:21 | Emergency (ER) | payer OTHER ==
[~2018-03-22] VITALS: Ht 167.6 cm; Wt 90.9 kg
[2018-03-22 16:21] VITALS: BP 148/75
[~2018-03-22 16:21] MED LIST: IBUP-1022 PO; NAPR250T4 PO; NORCOTAB PO
[2018-03-22] MEDS ORDERED: MUCI1TAB16 PO (16:28)
[2018-03-22] MEDS ORDERED: SUDAFED PO (16:28)
[2018-03-22] MEDS ORDERED: IBUP80TA PO (17:09)
[2018-03-22] MEDS ORDERED: AUGM875T28 PO (17:09)
[2018-03-22] MEDS ORDERED: AUGMENTIN 875 MG TAB PO ONE (17:15)
[2018-03-22 17:20] LABS: INFLUENZA A AMPLIFICATION NEGATIVE (NEGATIVE); INFLUENZA B AMPLIFICATION NEGATIVE (NEGATIVE)
== END 2018-03-22 17:20 | disposition home or self-care (01) ==
LOC: M ED 16:21
DX: J02.0 Streptococcal pharyngitis (principal)